=== PATIENT | female | born 1935 | race Caucasian/White ===

== ENCOUNTER 2017-06-28 12:46 | Inpatient (IN) ==
[2017-06-28] MEDS ORDERED: 0.9 % Sodium Chloride 1,000 ML IVC ONE (14:49)
[2017-06-28] MEDS ORDERED: Ondansetron 4 MG/2 ML VIAL IVP ONE (14:50)
--- NOTE | 2017-06-28 14:57 | Emergency Department Note ---
Disposition Clinical Impression: Pancolitis Abdominal pain Qualifiers: Abdominal location: unspecified location Qualified Code(s): R10.9 - Unspecified abdominal pain Disposition: Admitted As Inpatient Condition: Good Referrals: Ryan Vogel DO [Primary Care Provider] - Forms: ED Satisfaction Letter Time of Disposition: 16:32 Nausea/Vomiting/Diarrhea HPI - General Chief complaint: ED Nausea/Vomiting/Diarrhea Stated complaint: Diarrhea x 6 days Time Seen by Provider: 06/28/17 14:32 Source: patient Limitations: no limitations Nursing Notes Reviewed: Yes Vital Signs Reviewed: Yes - History of Present Illness HPI Narrative: 81-year-old female history of insulin-dependent diabetes mellitus presents an emergency department with abdominal pain and diarrhea. States the symptoms have been going on for the last 6 days. She reports roughly 6 bowel movements a day over the past 6 days. They are loose and appearance. It has not gotten better but it has not gotten worse. She associates with some sharp abdominal pain that becomes crampy after bowel movement mostly in the lower belly. She has not taken anything for the discomfort. She denies any blood in her stool. There is blood when she wipes. Denies any urinary symptoms. Denies any fevers. Reports some associated nausea denies any vomiting. Denies any chest pain or shortness of breath. Patient is a tobacco user. History of cholecystectomy, appendectomy and hysterectomy. Denies any recent travel or rashes. Denies any injury or trauma to the abdomen. She follows with Dr. Vogel her primary care physician who she is scheduled to have an appointment tomorrow morning. Denies any sick contacts. Denies history of prior antibiotic use. Pt Subjective Complaint: nausea, diarrhea, abdominal pain - Related Data Home Medications Medication Instructions Recorded Confirmed Atenolol [Tenormin] 25 mg PO DAILY 05/01/15 06/28/17 Gabapentin [Neurontin] 300 mg PO BID 05/01/15 06/28/17 Losartan Potassium [Cozaar] 100 mg PO DAILY 05/01/15 06/28/17 Simvastatin [Zocor] 10 mg PO QPM 05/01/15 06/28/17 amLODIPine [Norvasc] 10 mg PO DAILY 05/01/15 06/28/17 HYDROcodone/Acet 10/325 mg [[place] 1 tab PO Q6HR PRN 06/28/17 06/28/17 10-325 mg] Insulin Glargine,Hum.rec.anlog 30 unit SQ QPM PRN 06/28/17 06/28/17 [Basaglar Viriikpen U-100] Allergies Allergy/AdvReac Type Severity Reaction Status Date / Time metformin Allergy Vomiting Verified 06/28/17 13:08 Penicillins Allergy Unconscious Verified 06/28/17 13:08 All systems ED: reviewed and negative except as stated. Review of Systems: As Per HPI Constitutional: Denies: fever Cardiovascular: Denies: chest pain Respiratory: Denies: cough, dyspnea Gastrointestinal: Reports: abdominal pain, nausea, diarrhea, hematochezia. Denies: vomiting Genitourinary: Denies: urgency, dysuria Musculoskeletal: Denies: back pain Integumentary: Denies: rash, abrasion, lesions Past Medical History - Past Medical History Attestation: Yes The following information was validated with the patient. Source: patient Medical history: Reports: COPD, diabetes, hyperlipidemia, hypertension, other Surgical history: Reports: appendectomy, cholecystectomy, hysterectomy Psychiatric history: Reports: no psych history - Social History Smoking Status: Current every day smoker Smokeless Tobacco Status: No Alcohol use: Reports: none Drug use: Reports: none Physical Exam - General Limitations: no limitations General appearance: alert - Head Head exam: atraumatic, normocephalic, normal inspection - Eye Eye exam: Present: normal appearance, PERRL, EOMI. Absent: scleral icterus - ENT ENT exam: normal exam, normal oropharynx, mucous membranes moist - Neck Neck exam: Present: normal inspection, full ROM, trachea midline - Chest Chest inspection: Present: normal inspection, symmetric chest wall rise - Respiratory Respiratory exam: Present: normal lung sounds bilaterally. Absent: respiratory distress, wheezes - Cardiovascular Cardiovascular exam: Present: regular rate, normal rhythm, normal heart sounds - Abdominal Exam Abdominal exam: Present: soft, Non-Tender, normal bowel sounds. Absent: tenderness, distention, guarding, rebound, rigidity, Suárez's sign, tenderness at McBurney's Point, mass, hernia Abdominal tenderness: Present: LLQ, suprapubic, mild - Extremities Exam Extremities exam: Present: normal inspection, full ROM, normal capillary refill. Absent: tenderness, pedal edema - Back Exam Back exam: Present: normal inspection, full ROM. Absent: tenderness, CVA tenderness (R), CVA tenderness (L) - Neurological Exam Neurological exam: Present: alert, oriented X3 - Psychiatric Psychiatric exam: Present: normal affect, normal mood - Skin Skin exam: Present: warm, dry, intact, normal color. Absent: rash, cyanosis, diaphoresis Course Course Narrative: Patient presents with generalized abdominal pain and diarrhea over the past several days. Mildly tender in the lower quadrants. No peritonitis. CT of the abdomen and pelvis showed pancolitis. Concerning for possible C. diff given loose stools. Will treat for possible infectious colitis. She denies any recent hospitalizations. No prior antibiotic use. Review for lab shows a leukocytosis but her hemoglobin is also elevated which could demonstrate some hemoconcentration from dehydration. No acute kidney injury. Creatinine is normal. She reports some mild improvement with medications. At this time will treat empirically with Cipro and Flagyl for possible infectious colitis and send toxin for C. diff. Impression is abdominal pain and pancolitis. - Consultations Consultation #1: Spoke with on-call hospitalist alice Quintanilla to admit for abdominal pain, diarrhea, pancolitis with concern for C. diff. No further orders at this time. Ok with IV cipro and flagyl. Time: 17:30 Vital Signs Temperature 98.1 F 06/28/17 13:08 Pulse Rate 60 06/28/17 13:08 Respiratory Rate 20 06/28/17 13:08 Blood Pressure 177/67 06/28/17 13:08 O2 Sat by Pulse Oximetry 94 06/28/17 13:08 Temperature 98.1 F 06/28/17 13:08 Pulse Rate 60 06/28/17 13:08 Respiratory Rate 20 06/28/17 13:08 Blood Pressure 177/67 06/28/17 13:08 O2 Sat by Pulse Oximetry 94 06/28/17 13:08 Oxygen Delivery Oxygen Delivery Room Air Nausea/Vomiting/Diarrhea - MDM Narrative Medical decision making narrative: Patient was discussed with my attending physician who agrees with ED management and final disposition. They independently evaluated the patient. Please refer to their attestation to this encounter for additional information. This note was generated by [employer] voice recognition software and as a result grammatical or spelling errors may occur using this program. - Medical Records Medical records reviewed: Yes I reviewed the patient's medical records. - Lab Data Lab results reviewed: Yes I reviewed the patient's lab results. Result diagrams: 06/28/17 14:44 06/28/17 14:44 Lab Results 06/28/17 06/28/17 Range/Units 14:44 14:44 WBC 15.0 H (4.3-11.1) K/mcL RBC 5.32 H (3.82-4.97) M/mcL Hgb 16.3 H (11.5-15.4) g/dL Hct 46.7 H (35.3-44.9) % MCV 87.8 (83.0-100.0) fL MCH 30.6 (28.0-33.3) pg MCHC 34.9 (31.6-35.5) g/dL RDW 13.7 (11.5-14.5) % Plt Count 362 (140-400) K/mcL MPV 11.4 (9.4-12.4) fL Immature Gran % 0.7 (0-4) % Seg Neutrophils % 62.5 % Lymphocytes % 23.5 % Monocytes % 8.3 % Eosinophils % 4.2 % Basophils % 0.8 % Neutrophils # 9.4 H (1.6-8.9) K/mcL Lymphocytes # 3.5 (0.6-4.6) K/mcL Monocytes # 1.2 (0.0-1.3) K/mcL Eosinophils # 0.6 (0.0-0.6) K/mcL Basophils # 0.1 (0.0-0.2) K/mcL Sodium 139 (136-145) mEq/L Potassium 3.4 L (3.5-5.1) mEq/L Chloride 107 (98-107) mEq/L Carbon Dioxide 22 L (23-29) mEq/L BUN 12 (8-23) mg/dL Creatinine 0.92 (0.60-1.20) mg/dL Est GFR ( Amer) > 60 (> 60) Est GFR (Non-Af Amer) 59 L (> 60) BUN/Creatinine Ratio 13 (6-26) Glucose 80 (70-105) mg/dL Calculated Osmolality 287 (280-300) Calcium 9.2 (8.6-10.3) mg/dL Total Bilirubin 0.3 (0.3-1.0) mg/dL AST 58 H (13-39) Units/L ALT 41 (7-52) Units/L Alkaline Phosphatase 211 H (34-104) Units/L Serum Total Protein 6.5 (6.4-8.9) g/dL Albumin 3.1 L (3.5-5.7) g/dL Globulin 3.4 (2.4-3.5) g/dL Albumin/Globulin Ratio 0.9 L (1.1-2.2) - Radiology Data Radiology results reviewed: Yes I reviewed the patient's radiology results. Abdomen/Pelvis CT 06/28/17 14:49 IMPRESSION: 1. Findings consistent with acute pancolitis. The differential favors infectious and inflammatory etiologies, including Clostridium difficile. 2. Air within the bladder lumen, likely related to recent catheterization. 3. Mild intrahepatic and extrahepatic biliary dilation, which may be related to prior cholecystectomy. 4. Bilateral nonobstructive renal calculi measure up to 3 mm. D/ / 06/28/2017 15:43:36 Sudheer Walters MD / brandon Interpreting Provider: Sudheer Walters MD
[2017-06-28 15:13] LABS: Basophils # 0.1 K/mcL (0.0-0.2); Basophils % 0.8 %; Eosinophils # 0.6 K/mcL (0.0-0.6); Eosinophils % 4.2 %; Hematocrit 46.7 % (35.3-44.9); Hemoglobin 16.3 g/dL (11.5-15.4); Immature Granulocytes % 0.7 % (0-4); Lymphocytes # 3.5 K/mcL (0.6-4.6); Lymphocytes % 23.5 %; Mean Corpuscular HGB Conc 34.9 g/dL (31.6-35.5); Mean Corpuscular Hemoglobin 30.6 pg (28.0-33.3); Mean Corpuscular Volume 87.8 fL (83.0-100.0); Mean Platelet Volume 11.4 fL (9.4-12.4); Monocytes # 1.2 K/mcL (0.0-1.3); Monocytes % 8.3 %; Neutrophils # 9.4 K/mcL (1.6-8.9); Platelet Count 362 K/mcL (140-400); Red Blood Count 5.32 M/mcL (3.82-4.97); Red Cell Distribution Width 13.7 % (11.5-14.5); Segmented Neutrophils % 62.5 %
[2017-06-28 15:38] LABS: Alanine Aminotransferase 41 Units/L (7-52); Albumin 3.1 g/dL (3.5-5.7); Albumin/Globulin Ratio 0.9 (1.1-2.2); Alkaline Phosphatase 211 Units/L (34-104); Aspartate Amino Transferase 58 Units/L (13-39); BUN/Creatinine Ratio 13 (6-26); Bilirubin,Total 0.3 mg/dL (0.3-1.0); Blood Urea Nitrogen 12 mg/dL (8-23); Calcium 9.2 mg/dL (8.6-10.3); Carbon Dioxide 22 mEq/L (23-29); Chloride 107 mEq/L (98-107); Globulin 3.4 g/dL (2.4-3.5); Glucose 80 mg/dL (70-105); Osmolality,Calculated 287 (280-300); Potassium 3.4 mEq/L (3.5-5.1); Sodium 139 mEq/L (136-145); Total Protein 6.5 g/dL (6.4-8.9); eGFR For African Americans > 60 (> 60); eGFR For Non-African Americans 59 (> 60)
[2017-06-28] MEDS ORDERED: MetroNIDAZOLE 500 MG/100 ML 500 MG/100 ML BAG IVPB ONE (16:22)
[2017-06-28] MEDS ORDERED: *HR* FentaNYL (PF) 100 MCG/2 ML VIAL IVP ONE (16:33)
--- NOTE | 2017-06-28 16:36 | Emergency Department Note ---
Disposition Clinical Impression: Pancolitis Abdominal pain Qualifiers: Abdominal location: unspecified location Qualified Code(s): R10.9 - Unspecified abdominal pain Disposition: Admitted As Inpatient Condition: Good Referrals: Ryan Vogel DO [Primary Care Provider] - Forms: ED Satisfaction Letter Time of Disposition: 16:20 General Adult HPI - General Chief complaint: ED Nausea/Vomiting/Diarrhea Stated complaint: Diarrhea x 6 days Time Seen by Provider: 06/28/17 14:32 Source: patient Mode of arrival: ambulatory Limitations: no limitations Nursing Notes Reviewed: Yes Vital Signs Reviewed: Yes - History of Present Illness Pain Scale: 10 - Related Data Home Medications Medication Instructions Recorded Confirmed Atenolol [Tenormin] 25 mg PO DAILY 05/01/15 05/01/15 Gabapentin [Neurontin] 300 mg PO BID 05/01/15 05/01/15 Glimepiride [Amaryl] 4 mg PO BID 05/01/15 05/01/15 Ipratropium/Albuterol Neb [Duoneb] 1 inh IH QID 05/01/15 05/01/15 Losartan Potassium [Cozaar] 100 mg PO DAILY 05/01/15 05/01/15 Simvastatin [Zocor] 10 mg PO QPM 05/01/15 05/01/15 amLODIPine [Norvasc] 10 mg PO DAILY 05/01/15 05/01/15 Previous Rx's Medication Instructions Recorded Azithromycin [Zithromax] 250 mg PO DAILY #4 tablet 05/02/15 Insulin DETEMIR [Levemir] 50 unit SQ DAILY 30 Days 05/02/15 predniSONE [PredniSONE] 20 mg PO DAILY #7 tablet 05/02/15 Allergies Allergy/AdvReac Type Severity Reaction Status Date / Time metformin Allergy Vomiting Verified 06/28/17 13:08 Penicillins Allergy Unconscious Verified 06/28/17 13:08 Constitutional: Denies: fever Cardiovascular: Denies: chest pain Respiratory: Denies: cough, dyspnea Gastrointestinal: Reports: abdominal pain, nausea, diarrhea, hematochezia. Denies: vomiting Genitourinary: Denies: urgency, dysuria Musculoskeletal: Denies: back pain Integumentary: Denies: rash, abrasion, lesions Past Medical History - Past Medical History Medical history: Reports: COPD, diabetes, hyperlipidemia, hypertension, other Surgical history: Reports: appendectomy, cholecystectomy, hysterectomy Psychiatric history: Reports: no psych history - Social History Smoking Status: Current every day smoker Smokeless Tobacco Status: No Alcohol use: Reports: none Drug use: Reports: none Physical Exam - General Limitations: no limitations General appearance: alert Course Vital Signs Temperature 98.1 F 06/28/17 13:08 Pulse Rate 60 06/28/17 13:08 Respiratory Rate 20 06/28/17 13:08 Blood Pressure 177/67 06/28/17 13:08 O2 Sat by Pulse Oximetry 94 06/28/17 13:08 Temperature 98.1 F 06/28/17 13:08 Pulse Rate 60 06/28/17 13:08 Respiratory Rate 20 06/28/17 13:08 Blood Pressure 177/67 06/28/17 13:08 O2 Sat by Pulse Oximetry 94 06/28/17 13:08 Oxygen Delivery Oxygen Delivery Room Air Medical Decision Making - Lab Data Result diagrams: 06/28/17 14:44 06/28/17 14:44 Lab Results 06/28/17 06/28/17 Range/Units 14:44 14:44 WBC 15.0 H (4.3-11.1) K/mcL RBC 5.32 H (3.82-4.97) M/mcL Hgb 16.3 H (11.5-15.4) g/dL Hct 46.7 H (35.3-44.9) % MCV 87.8 (83.0-100.0) fL MCH 30.6 (28.0-33.3) pg MCHC 34.9 (31.6-35.5) g/dL RDW 13.7 (11.5-14.5) % Plt Count 362 (140-400) K/mcL MPV 11.4 (9.4-12.4) fL Immature Gran % 0.7 (0-4) % Seg Neutrophils % 62.5 % Lymphocytes % 23.5 % Monocytes % 8.3 % Eosinophils % 4.2 % Basophils % 0.8 % Neutrophils # 9.4 H (1.6-8.9) K/mcL Lymphocytes # 3.5 (0.6-4.6) K/mcL Monocytes # 1.2 (0.0-1.3) K/mcL Eosinophils # 0.6 (0.0-0.6) K/mcL Basophils # 0.1 (0.0-0.2) K/mcL Sodium 139 (136-145) mEq/L Potassium 3.4 L (3.5-5.1) mEq/L Chloride 107 (98-107) mEq/L Carbon Dioxide 22 L (23-29) mEq/L BUN 12 (8-23) mg/dL Creatinine 0.92 (0.60-1.20) mg/dL Est GFR ( Amer) > 60 (> 60) Est GFR (Non-Af Amer) 59 L (> 60) BUN/Creatinine Ratio 13 (6-26) Glucose 80 (70-105) mg/dL Calculated Osmolality 287 (280-300) Calcium 9.2 (8.6-10.3) mg/dL Total Bilirubin 0.3 (0.3-1.0) mg/dL AST 58 H (13-39) Units/L ALT 41 (7-52) Units/L Alkaline Phosphatase 211 H (34-104) Units/L Serum Total Protein 6.5 (6.4-8.9) g/dL Albumin 3.1 L (3.5-5.7) g/dL Globulin 3.4 (2.4-3.5) g/dL Albumin/Globulin Ratio 0.9 L (1.1-2.2) Attestation Statement - Attestation Attestation: I, Austin Eddy, examined this patient and my medical decision-making was reviewed with the THREAD DRESSER/PA/Advanced Practice Nurse/Resident Physician. I agree with the documented findings, disposition and treatment plan as described except to the extent set forth below. 81-year-old female presents emergency Department with concerns of persistent diarrhea. Patient states she has generalized abdominal pain, worse with eating and with movement. Patient states she has never had symptoms like this in the past. Patient states the diarrhea is yellowish in color, nonbloody and without melena however she does have a small amount of blood present on tissue paper when wiping. Patient denies vaginal bleeding or vaginal discharge, chest pain, shortness of breath, syncope. No recent changes in her medications. Patient denies antibiotic use within the past 6 months. Denies camping or drinking from stream or well water. Denies eating new or unusual foods. No history of C. difficile the past. No sick contacts. CT of the abdomen and pelvis was obtained which showed pancolitis with concerns for C. difficile. Patient does have an elevated leukocytosis. Patient will be started on antibiotics emergency department. We will obtain a stool sample to evaluate for C. difficile. Patient comfortable with the plan for admission to the hospital.
--- NOTE | 2017-06-28 18:29 | Internal Med History&Physical ---
Date of Encounter: 06/29/17 Time of Encounter: 05:00 Internal Medicine - H&P: HPI Chief complaint: Diarrhea History of present illness: 81-year-old female with PMH of HTN, DM, COPD and hyperlipidemis who presents emergency Department with with generalized abdominal pain associated with non- bloody diarrhea. CT of the abdomen and pelvis was obtained which showed pancolitis with concerns for C. difficile. The patient was admitted for further evaluation and management. Past Med Surg Social Fam HX - Past Medical History Medical history: COPD, diabetes, hyperlipidemia, hypertension, other Psychiatric history: no psych history - Past Surgical History Surgical History: appendectomy, cholecystectomy, hysterectomy - Social History Smoking Status: Current every day smoker Smokeless Tobacco Status: No Alcohol use: none Drug use: none - Family History Mother Living Status: Hx Family Cardiac Disorders: Yes Hx Family Endocrine Disorder: Yes (DM) Internal Medicine - H&P: Meds Atenolol [Tenormin] 25 mg PO DAILY 05/01/15 [History] Gabapentin [Neurontin] 300 mg PO BID 05/01/15 [History] Losartan Potassium [Cozaar] 100 mg PO DAILY 05/01/15 [History] Simvastatin [Zocor] 10 mg PO QPM 05/01/15 [History] amLODIPine [Norvasc] 10 mg PO DAILY 05/01/15 [History] HYDROcodone/Acet 10/325 mg [[place] 10-325 mg] 1 tab PO Q6HR PRN 06/28/17 [History ] Insulin Glargine,Hum.rec.anlog [Basaglar Kwikpen U-100] 30 unit SQ QPM PRN 06/28 [History] 3 Allergy/AdvReac Type Severity Reaction Status Date / Time metformin Allergy Vomiting Verified 06/28/17 13:08 Penicillins Allergy Unconscious Verified 06/28/17 13:08 All Systems PM: A 10-system review of systems was performed and is negative for pertinent findings except as documented above in the HPI. - Constitutional Constitutional: no chills, no fever(s), no night sweats - Cardiovascular Cardiovascular ROS IM: no chest pain, no diaphoresis, no dyspnea, no lightheadedness, no palpitations, no syncope - Respiratory Respiratory: no cough, no dyspnea, no wheezing, no excessive phlegm production - Gastrointestinal Gastrointestinal: abdominal pain, cramping, diarrhea, nausea, vomiting, no hematemesis, no hematochezia, no melena - Neurological Neurological ROS: no confusion, no convulsions, no focal weakness, no numbness, no tingling, no tremor(s) - Constitutional Vitals: Temp Pulse Resp BP Pulse Ox 98.1 F 53 18 146/51 92 06/28/17 13:08 06/28/17 18:19 06/28/17 18:19 06/28/17 18:19 06/28/17 18:19 Internal Med - H&P Results - Labs CBC & Chem 7: 06/29/17 01:55 06/29/17 01:55 - Assessment and plan (1) Pancolitis Current Visit: Yes Status: Acute Assessment and plan: ASSESSMENT: - Diarrhea DD *Gastroenteritis *Gastritis *PUD *Pancreatitis *Cholecystitis *Diverticulitis *UTI PLAN: - NPO apart from meds - IVF - Stool WBC, O/P, C/S, Stool C.diff - Urine C+S - CBCD, BMP in AM - Liver/gallbladder U/S - GI consult - Zofran (ondansetron) PRN - DVT prophylaxis (2) T2DM (type 2 diabetes mellitus) Current Visit: No Status: Chronic Assessment and plan: Home meds, Insulin sliding scale Qualifiers: Diabetes mellitus complication status: without complication (3) Tobacco abuse Current Visit: No Status: Acute (4) DVT prophylaxis Current Visit: No Status: Acute (5) Hypertension Current Visit: Yes Status: Acute (6) COPD (chronic obstructive pulmonary disease) Current Visit: Yes Status: Acute (7) Hypokalemia Current Visit: Yes Status: Acute (8) Transaminitis Current Visit: Yes Status: Acute (9) UTI (urinary tract infection) Current Visit: Yes Status: Acute Assessment and plan: UA is suggetive of UTI , she asymptomatic , we will repeat a clean catch UA - Time Spent With Patient Total time spent is greater than 50% in coordination of care (as documented) at patient's floor/unit and/or counseling patient:
[2017-06-28] MEDS ORDERED: D5% in Water 1,000 ML IVC PRN (18:39)
[2017-06-28] MEDS ORDERED: Dextrose Gel 15 GM/37.5 ML TUBE PO PRN ×2 (18:39)
[2017-06-28] MEDS ORDERED: Naloxone 0.4 MG/ML INJ IVP PRN (19:38)
[2017-06-28 19:49] LABS: Bilirubin,Urine Negative (Negative); Blood,Urine Trace (Negative); Clarity,Urine Turbid (Clear); Color,Urine Yellow (Yellow); Glucose,Urine (UA) Normal (Normal); Ketones,Urine Negative (Negative); Leukocyte Esterase,Urine Small (Negative); Nitrite,Urine Negative (Negative); Protein,Urine >=1000 mg/dL (Neg-Trace); Specific Gravity,Urine 1.023 (1.010-1.025); Urobilinogen,Urine Normal (Normal)
[2017-06-28 19:51] LABS: Bacteria,Urine Many per hpf (None-Few); Hyaline Casts,Urine None Seen per lpf (None-Few); Squamous Epithelial Cell,Urine Many per lpf (None-Few); WBC,Urine TNTC per hpf (0-3)
[2017-06-28] MEDS: Gabapentin 300 MG CAPSULE PO SCH (20:32)
[2017-06-28] MEDS: 0.9 % Sodium Chloride 1,000 ML IVC SCH (20:33)
[2017-06-28] MEDS: *HR* Dextrose 50 % in Water (Syg) 50 ML SYRINGE IVP PRN (22:13)
[2017-06-28] MEDS: Insulin DETEMIR 100 UNIT/ML X5UNITS SQ SCH (22:31)
--- NOTE | 2017-06-28 23:19 | Event Note ---
Date of Encounter: 06/28/17 Time of Encounter: 23:17 Was called about a positive C. Diff. Will start oral vancomycin per new IDSA guidelines for C. Diff treatment. It seems the patient has received IV flagyl and IV cipro in the ED earlier.
[2017-06-28] MEDS: Insulin LISPRO 300 UNITS/3 ML VIAL SQ SCH (23:33)
[2017-06-28] MEDS: Vancomycin Oral Soln 125 MG/2.5 ML UDC PO SCH (23:56)
[2017-06-29 02:13] LABS: Basophils # 0.1 K/mcL (0.0-0.2); Basophils % 0.5 %; Eosinophils # 0.3 K/mcL (0.0-0.6); Eosinophils % 3.4 %; Hematocrit 37.2 % (35.3-44.9); Immature Granulocytes % 0.6 % (0-4); Lymphocytes # 1.8 K/mcL (0.6-4.6); Lymphocytes % 19.4 %; Mean Corpuscular HGB Conc 34.1 g/dL (31.6-35.5); Mean Corpuscular Hemoglobin 30.1 pg (28.0-33.3); Mean Corpuscular Volume 88.2 fL (83.0-100.0); Mean Platelet Volume 10.5 fL (9.4-12.4); Monocytes # 0.7 K/mcL (0.0-1.3); Neutrophils # 6.5 K/mcL (1.6-8.9); Platelet Count 234 K/mcL (140-400); Red Blood Count 4.22 M/mcL (3.82-4.97); Red Cell Distribution Width 13.5 % (11.5-14.5); Segmented Neutrophils % 69.1 %
[2017-06-29 02:14] LABS: Hemoglobin 12.7 g/dL (11.5-15.4)
[2017-06-29 02:19] LABS: INR 1.1; Prothrombin Time 11.6 Seconds (9.4-12.1)
[2017-06-29 02:22] LABS: Activated Partial Thrombo Time 34.3 Seconds (26.0-36.0)
[2017-06-29 02:30] LABS: Alanine Aminotransferase 31 Units/L (7-52); Albumin 2.1 g/dL (3.5-5.7); Albumin/Globulin Ratio 0.9 (1.1-2.2); Alkaline Phosphatase 147 Units/L (34-104); Aspartate Amino Transferase 47 Units/L (13-39); BUN/Creatinine Ratio 14 (6-26); Bilirubin,Total 0.2 mg/dL (0.3-1.0); Blood Urea Nitrogen 12 mg/dL (8-23); Calcium 7.7 mg/dL (8.6-10.3); Carbon Dioxide 21 mEq/L (23-29); Chloride 114 mEq/L (98-107); Chol/HDL Ratio 1.8 (0-4.9); Cholesterol 101 mg/dL (< 200); Globulin 2.4 g/dL (2.4-3.5); Glucose 84 mg/dL (70-105); HDL Cholesterol 55 mg/dL (40-59); LDL Cholesterol,Calculated 28 mg/dL (0-99); Magnesium 1.5 mg/dL (1.6-2.6); Osmolality,Calculated 287 (280-300); Phosphorous 4.4 mg/dL (2.7-4.5); Potassium 3.1 mEq/L (3.5-5.1); Sodium 139 mEq/L (136-145); Total Protein 4.5 g/dL (6.4-8.9); Triglycerides 88 mg/dL (< 150); eGFR For African Americans > 60 (> 60); eGFR For Non-African Americans > 60 (> 60)
[2017-06-29] MEDS: *HR* HYDROcodone/Acet 10/325 mg TABLET PO PRN ×3 (03:35→23:00)
[2017-06-29] MEDS ORDERED: MetroNIDAZOLE 500 MG/100 ML 500 MG/100 ML BAG IVPB SCH (04:00)
[2017-06-29] MEDS: 0.9 % Sodium Chloride 1,000 ML IVC SCH (04:34)
[2017-06-29] MEDS: Pantoprazole 40 MG VIAL IVP SCH ×2 (05:46→16:41)
[2017-06-29] MEDS: *HR* Dextrose 50 % in Water (Syg) 50 ML SYRINGE IVP PRN (05:46)
[2017-06-29] MEDS: Insulin LISPRO 300 UNITS/3 ML VIAL SQ SCH ×3 (05:47→20:14)
[2017-06-29] MEDS: *HR* Heparin 5,000 UNIT/ML VIAL SQ SCH ×2 (05:47→16:42)
[2017-06-29 08:25] LABS: Estimated Average Glucose 266 mg/dl; Hemoglobin A1C 10.9 %
[2017-06-29] MEDS: Gabapentin 300 MG CAPSULE PO SCH ×2 (11:51→21:07)
[2017-06-29] MEDS: amLODIPine 5 MG TABLET PO SCH (11:52)
[2017-06-29] MEDS: Vancomycin Oral Soln 125 MG/2.5 ML UDC PO SCH ×4 (12:58→23:01)
--- NOTE | 2017-06-29 14:23 | Internal Med Progress Note ---
Date of Encounter: 06/29/17 Time of Encounter: 14:20 - Assessment and plan (1) COPD with acute exacerbation Current Visit: No Status: Chronic Assessment and plan: Chronic no active wheezing at present (2) T2DM (type 2 diabetes mellitus) Current Visit: No Status: Chronic Assessment and plan: Chronic we will continue sliding scale Qualifiers: Diabetes mellitus terminal make up operator insulin use: unspecified terminal make up operator insulin use status Diabetes mellitus complication status: with unspecified complications Qualified Code(s): E11.8 - Type 2 diabetes mellitus with unspecified complications (3) Abdominal pain Current Visit: Yes Status: Acute Assessment and plan: CT of the abdomen shows pancolitis patient started on Cipro and Flagyl Qualifiers: Abdominal location: unspecified location Qualified Code(s): R10.9 - Unspecified abdominal pain (4) Pancolitis Current Visit: Yes Status: Acute (5) Hypertension Current Visit: Yes Status: Chronic Assessment and plan: Chronic and appears uncontrolled i patient says her blood pressure normally controlled at home medication has prn hydralazine Qualifiers: Hypertension type: essential hypertension Qualified Code(s): I10 - Essential (primary) hypertension (6) Transaminitis Current Visit: Yes Status: Acute Assessment and plan: Ultrasound of the gallbladder unremarkable (7) UTI (urinary tract infection) Current Visit: Yes Status: Acute Assessment and plan: Patient on antiplatelet antibiotic that will cover UTI Qualifiers: Urinary tract infection type: acute cystitis Hematuria presence: without hematuria Qualified Code(s): N30.00 - Acute cystitis without hematuria - Time Spent With Patient Total time spent is greater than 50% in coordination of care (as documented) at patient's floor/unit and/or counseling patient: - Subjective Interval history: Patient with history of hypertension, diabetes, COPD, patient was admitted with generalized abdominal pain and diarrhea CT of the abdomen shows pancolitis right upper quadrant ultrasound was unremarkable C. difficile was also positive . started on Cipro Flagyl and by mouth vancomycin today patient says she feels much better less diarrhea overall she feels better - Constitutional Vitals: Temp Pulse Resp BP Pulse Ox 98.1 F 59 14 185/61 93 06/29/17 10:33 06/29/17 10:33 06/29/17 10:33 06/29/17 10:33 06/29/17 10:33 - Head Head exam: Present: atraumatic, normocephalic - Eye Eye exam: Present: PERRL, conjuntiva pink, sclera anicteric Pupils: Present: PERRL - Respiratory Respiratory exam: Present: CTAB. Absent: accessory muscle use, rales, rhonchi, wheezes - Cardiovascular Cardiovascular exam: Present: RRR, +S1, +S2. Absent: diastolic murmur, gallop, rubs, systolic murmur - GI/Abdominal GI/Abdominal exam: Present: soft - Extremities Exam Extremities exam: Present: warm, radial pulses palpable and symmetrical. Absent : calf tenderness, cyanotic, pedal edema Internal Medicine: Result - Labs CBC & Chem 7: 06/29/17 01:55 06/29/17 01:55 Labs: Short CBC 06/29/17 Range/Units 01:55 WBC 9.4 (4.3-11.1) K/mcL Hgb 12.7 D (11.5-15.4) g/dL Hct 37.2 (35.3-44.9) % Plt Count 234 (140-400) K/mcL Neutrophils # 6.5 (1.6-8.9) K/mcL BMP 06/29/17 01:55 Sodium 139 Potassium 3.1 L Chloride 114 H Carbon Dioxide 21 L BUN 12 Creatinine 0.83 Glucose 84 Calcium 7.7 L Cardiac Enzymes 06/28/17 06/29/17 06/29/17 Range/Units 21:05 01:55 08:18 Troponin I < 0.03 < 0.03 < 0.03 (< 0.04) ng/mL Liver Function 06/29/17 Range/Units 01:55 Total Bilirubin 0.2 L (0.3-1.0) mg/dL AST 47 H (13-39) Units/L ALT 31 (7-52) Units/L Alkaline Phosphatase 147 H (34-104) Units/L Albumin 2.1 L (3.5-5.7) g/dL - ABG Interpretation ABG results: PT/INR, D-dimer PT 11.6 Seconds (9.4-12.1) 06/29/17 01:55 - Impressions Impressions Abdomen Ultrasound 06/29/17 09:00 IMPRESSION: Cholecystectomy. Exam is otherwise unremarkable. D/ / 06/29/2017 10:31:54 Raffaele Damico MD / raisa Interpreting Provider: Raffaele Damico MD Consult Discharge Plan - Plan Referrals: Ryan Vogel DO [Primary Care Provider] -
[2017-06-29] MEDS: Insulin DETEMIR 100 UNIT/ML X5UNITS SQ SCH (21:18)
[2017-06-30] MEDS ORDERED: Dextrose Gel 15 GM/37.5 ML TUBE PO PRN ×4 (01:22→01:31)
[2017-06-30] MEDS ORDERED: *HR* Dextrose 50 % in Water (Syg) 50 ML SYRINGE IVP PRN ×2 (01:22→01:31)
[2017-06-30] MEDS ORDERED: D5% in Water 1,000 ML IVC PRN ×2 (01:22→01:31)
[2017-06-30 05:24] LABS: BUN/Creatinine Ratio 13 (6-26); Blood Urea Nitrogen 14 mg/dL (8-23); Calcium 7.7 mg/dL (8.6-10.3); Carbon Dioxide 17 mEq/L (23-29); Chloride 115 mEq/L (98-107); Glucose 201 mg/dL (70-105); Osmolality,Calculated 292 (280-300); Potassium 3.8 mEq/L (3.5-5.1); Sodium 138 mEq/L (136-145); eGFR For African Americans > 60 (> 60); eGFR For Non-African Americans 51 (> 60)
[2017-06-30] MEDS: *HR* Heparin 5,000 UNIT/ML VIAL SQ SCH ×2 (05:53→17:09)
[2017-06-30] MEDS: Pantoprazole 40 MG VIAL IVP SCH ×2 (05:53→17:09)
[2017-06-30] MEDS: *HR* HYDROcodone/Acet 10/325 mg TABLET PO PRN ×3 (05:54→20:16)
[2017-06-30] MEDS: Insulin LISPRO 300 UNITS/3 ML VIAL SQ SCH ×3 (08:43→17:09)
[2017-06-30] MEDS: amLODIPine 5 MG TABLET PO SCH (08:43)
[2017-06-30] MEDS: Gabapentin 300 MG CAPSULE PO SCH ×2 (08:43→20:16)
[2017-06-30] MEDS: Vancomycin Oral Soln 125 MG/2.5 ML UDC PO SCH ×4 (10:14→20:18)
--- NOTE | 2017-06-30 16:12 | Internal Med Progress Note ---
Date of Encounter: 06/30/17 Time of Encounter: 16:10 - Assessment and plan (1) C. difficile colitis Current Visit: Yes Status: Acute Assessment and plan: Presented with complaints of severe diarrhea. CT abdomen/pelvis showed pancolitis and patient tested positive for C difficile. Continue oral vancomycin Appetite is poor and patient currently feeling ill Encouraging PO intake. Continue to monitor. (2) T2DM (type 2 diabetes mellitus) Current Visit: No Status: Chronic Assessment and plan: Home meds, Insulin sliding scale Qualifiers: Diabetes mellitus vermin exterminator insulin use: unspecified vermin exterminator insulin use status Diabetes mellitus complication status: with unspecified complications Qualified Code(s): E11.8 - Type 2 diabetes mellitus with unspecified complications (3) Tobacco abuse Current Visit: No Status: Acute (4) Hypertension Current Visit: Yes Status: Chronic Assessment and plan: Continue Norvasc, atenolol, Zozaar IV hydralazine prn. Qualifiers: Hypertension type: essential hypertension Qualified Code(s): I10 - Essential (primary) hypertension (5) COPD (chronic obstructive pulmonary disease) Current Visit: Yes Status: Acute Qualifiers: COPD type: unspecified COPD Qualified Code(s): J44.9 - Chronic obstructive pulmonary disease, unspecified (6) Hypokalemia Current Visit: Yes Status: Acute Assessment and plan: Replace as needed (7) Transaminitis Current Visit: Yes Status: Acute (8) DVT prophylaxis Current Visit: No Status: Acute - Time Spent With Patient Total time spent is greater than 50% in coordination of care (as documented) at patient's floor/unit and/or counseling patient: - Subjective Interval history: States diarrhea is much better, however, she is complaining of severe discomfort. Also having poor appetite, she had an egg in the morning and was not able to eat any lunch. Denies fevers/chills, n/v. - Constitutional Vitals: Temp Pulse Resp BP Pulse Ox 98.3 F 64 14 147/55 93 06/30/17 14:47 06/30/17 14:47 06/30/17 14:47 06/30/17 14:47 06/30/17 14:47 Exam: Gen: AAOx3, NAD CVS: RRR lungs: CTAB Abd: soft, +TTP epigastric, non-distended. Ext: no edema Internal Medicine: Result - Labs CBC & Chem 7: 06/29/17 01:55 06/30/17 04:46 Labs: BMP 06/30/17 04:46 Sodium 138 Potassium 3.8 Chloride 115 H Carbon Dioxide 17 L BUN 14 Creatinine 1.05 Glucose 201 H Calcium 7.7 L - ABG Interpretation ABG results: PT/INR, D-dimer PT 11.6 Seconds (9.4-12.1) 06/29/17 01:55 Consult Discharge Plan - Plan Referrals: Ryan Vogel DO [Primary Care Provider] - 07/09/17 12:00 pm
[2017-06-30] MEDS ORDERED: Insulin LISPRO 300 UNITS/3 ML VIAL SQ SCH (21:00)
[2017-06-30] MEDS: Insulin DETEMIR 100 UNIT/ML X5UNITS SQ SCH (22:09)
[2017-07-01] MEDS: *HR* HYDROcodone/Acet 10/325 mg TABLET PO PRN ×3 (04:53→21:10)
[2017-07-01] MEDS: Pantoprazole 40 MG VIAL IVP SCH (04:54)
[2017-07-01] MEDS: *HR* Heparin 5,000 UNIT/ML VIAL SQ SCH ×2 (04:54→17:23)
[2017-07-01 06:40] LABS: Basophils # 0.1 K/mcL (0.0-0.2); Basophils % 0.9 %; Eosinophils # 0.4 K/mcL (0.0-0.6); Eosinophils % 4.7 %; Hematocrit 37.9 % (35.3-44.9); Hemoglobin 13.1 g/dL (11.5-15.4); Immature Granulocytes % 1.4 % (0-4); Lymphocytes # 1.1 K/mcL (0.6-4.6); Lymphocytes % 11.8 %; Mean Corpuscular HGB Conc 34.6 g/dL (31.6-35.5); Mean Corpuscular Hemoglobin 30.7 pg (28.0-33.3); Mean Corpuscular Volume 88.8 fL (83.0-100.0); Mean Platelet Volume 11.1 fL (9.4-12.4); Monocytes # 0.9 K/mcL (0.0-1.3); Monocytes % 10.3 %; Neutrophils # 6.4 K/mcL (1.6-8.9); Platelet Count 242 K/mcL (140-400); Red Blood Count 4.27 M/mcL (3.82-4.97); Red Cell Distribution Width 14.2 % (11.5-14.5); Segmented Neutrophils % 70.9 %
[2017-07-01 07:04] LABS: BUN/Creatinine Ratio 14 (6-26); Blood Urea Nitrogen 11 mg/dL (8-23); Calcium 7.8 mg/dL (8.6-10.3); Carbon Dioxide 19 mEq/L (23-29); Chloride 112 mEq/L (98-107); Glucose 190 mg/dL (70-105); Osmolality,Calculated 288 (280-300); Potassium 3.3 mEq/L (3.5-5.1); Sodium 137 mEq/L (136-145); eGFR For African Americans > 60 (> 60); eGFR For Non-African Americans > 60 (> 60)
[2017-07-01] MEDS: Insulin LISPRO 300 UNITS/3 ML VIAL SQ SCH ×3 (07:55→17:23)
[2017-07-01] MEDS: Gabapentin 300 MG CAPSULE PO SCH ×2 (07:57→21:10)
[2017-07-01] MEDS: amLODIPine 5 MG TABLET PO SCH (07:57)
[2017-07-01] MEDS: Vancomycin Oral Soln 125 MG/2.5 ML UDC PO SCH ×4 (07:57→21:11)
--- NOTE | 2017-07-01 09:48 | Internal Med Progress Note ---
Date of Encounter: 07/01/17 Time of Encounter: 09:45 - Assessment and plan (1) C. difficile colitis Current Visit: Yes Status: Acute Assessment and plan: Presented with complaints of severe diarrhea. CT abdomen/pelvis showed pancolitis and patient tested positive for C difficile. Continue oral vancomycin Continue to monitor. Appetite still poor. Will continue to encourage PO She is slow to improve from what she is telling me, I will get a repeat CT today. (2) T2DM (type 2 diabetes mellitus) Current Visit: No Status: Chronic Assessment and plan: Home meds, Insulin sliding scale Qualifiers: Diabetes mellitus medical terminologist insulin use: unspecified shelter insulin use status Diabetes mellitus complication status: with unspecified complications Qualified Code(s): E11.8 - Type 2 diabetes mellitus with unspecified complications (3) Tobacco abuse Current Visit: No Status: Acute (4) Hypertension Current Visit: Yes Status: Chronic Assessment and plan: On Norvasc, atenolol, Zozaar. Give IV hydralazine prn. Qualifiers: Hypertension type: essential hypertension Qualified Code(s): I10 - Essential (primary) hypertension (5) COPD (chronic obstructive pulmonary disease) Current Visit: Yes Status: Acute Qualifiers: COPD type: unspecified COPD Qualified Code(s): J44.9 - Chronic obstructive pulmonary disease, unspecified (6) Hypokalemia Current Visit: Yes Status: Acute Assessment and plan: Replace as needed will give additional today (7) Transaminitis Current Visit: Yes Status: Acute (8) DVT prophylaxis Current Visit: No Status: Acute Assessment and plan: Heparin 5,000 units SQ - Time Spent With Patient Total time spent is greater than 50% in coordination of care (as documented) at patient's floor/unit and/or counseling patient: - Subjective Interval history: States no diarrhea Denies fevers/chills Computer lists dinner 100% but patient telling me she did not eat much of dinner couldn't handle it. - Constitutional Vitals: Temp Pulse Resp BP Pulse Ox 99.1 F 70 16 182/75 93 07/01/17 06:52 07/01/17 06:52 07/01/17 06:52 07/01/17 06:52 07/01/17 06:52 - Head Head exam: Present: atraumatic, normocephalic - Eye Eye exam: Present: PERRL, conjuntiva pink, sclera anicteric Pupils: Present: PERRL - Neck Neck exam general surgery: Present: supple, trachea midline. Absent: lymphadenopathy - Respiratory Respiratory exam: Present: CTAB. Absent: accessory muscle use, rales, rhonchi, wheezes - Cardiovascular Cardiovascular exam: Present: RRR, +S1, +S2. Absent: diastolic murmur, gallop, rubs, systolic murmur - GI/Abdominal GI/Abdominal exam: Present: normal bowel sounds, soft, tenderness, no peritoneal signs. Absent: distended - Extremities Exam Extremities exam: Present: warm, radial pulses palpable and symmetrical. Absent : calf tenderness, cyanotic, pedal edema - Neurological Exam Neurological exam: Present: CN II-XII intact, oriented X3, no focal deficits. Absent: pronater drift, facial droop, speech deficit - Skin Skin exam: Present: dry, intact Internal Medicine: Result - Labs CBC & Chem 7: 07/01/17 05:49 07/01/17 05:49 Labs: Short CBC 07/01/17 Range/Units 05:49 WBC 9.0 (4.3-11.1) K/mcL Hgb 13.1 (11.5-15.4) g/dL Hct 37.9 (35.3-44.9) % Plt Count 242 (140-400) K/mcL Neutrophils # 6.4 (1.6-8.9) K/mcL BMP 07/01/17 05:49 Sodium 137 Potassium 3.3 L Chloride 112 H Carbon Dioxide 19 L BUN 11 Creatinine 0.77 Glucose 190 H Calcium 7.8 L - ABG Interpretation ABG results: PT/INR, D-dimer PT 11.6 Seconds (9.4-12.1) 06/29/17 01:55 Consult Discharge Plan - Plan Referrals: Ryan Vogel DO [Primary Care Provider] - 07/09/17 12:00 pm
[2017-07-01] MEDS ORDERED: Calcium Gluconate 2,000 MG in D5% in Water 100 ML IVPB ONE (09:51)
[2017-07-01] MEDS: Insulin DETEMIR 100 UNIT/ML X5UNITS SQ SCH (21:11)
[2017-07-02] MEDS: *HR* HYDROcodone/Acet 10/325 mg TABLET PO PRN ×2 (04:35→11:06)
[2017-07-02] MEDS: *HR* Heparin 5,000 UNIT/ML VIAL SQ SCH (06:16)
[2017-07-02 08:16] LABS: Basophils # 0.1 K/mcL (0.0-0.2); Basophils % 0.5 %; Eosinophils # 0.7 K/mcL (0.0-0.6); Eosinophils % 6.5 %; Hemoglobin 14.1 g/dL (11.5-15.4); Immature Granulocytes % 1.1 % (0-4); Lymphocytes # 1.7 K/mcL (0.6-4.6); Lymphocytes % 14.6 %; Mean Corpuscular HGB Conc 34.4 g/dL (31.6-35.5); Mean Corpuscular Hemoglobin 30.3 pg (28.0-33.3); Mean Corpuscular Volume 88.2 fL (83.0-100.0); Neutrophils # 7.7 K/mcL (1.6-8.9); Platelet Count 253 K/mcL (140-400); Red Blood Count 4.65 M/mcL (3.82-4.97); Red Cell Distribution Width 14.2 % (11.5-14.5); Segmented Neutrophils % 68.3 %
[2017-07-02] MEDS: Insulin LISPRO 300 UNITS/3 ML VIAL SQ SCH ×2 (09:17→12:52)
[2017-07-02] MEDS: amLODIPine 5 MG TABLET PO SCH (09:22)
[2017-07-02] MEDS: Gabapentin 300 MG CAPSULE PO SCH (09:22)
[2017-07-02] MEDS: Vancomycin Oral Soln 125 MG/2.5 ML UDC PO SCH (09:23)
[2017-07-02 09:57] LABS: BUN/Creatinine Ratio 15 (6-26); Blood Urea Nitrogen 12 mg/dL (8-23); Calcium 8.2 mg/dL (8.6-10.3); Carbon Dioxide 20 mEq/L (23-29); Chloride 111 mEq/L (98-107); Glucose 81 mg/dL (70-105); Osmolality,Calculated 283 (280-300); Potassium 3.8 mEq/L (3.5-5.1); Sodium 137 mEq/L (136-145); eGFR For African Americans > 60 (> 60); eGFR For Non-African Americans > 60 (> 60)
--- NOTE | 2017-07-02 11:00 | Internal Med Progress Note ---
Date of Encounter: 07/02/17 Time of Encounter: 10:54 - Assessment and plan (1) C. difficile colitis Current Visit: Yes Status: Acute (2) T2DM (type 2 diabetes mellitus) Current Visit: No Status: Chronic Qualifiers: Diabetes mellitus buttermaker continuous churn insulin use: unspecified buttermaker continuous churn insulin use status Diabetes mellitus complication status: with unspecified complications Qualified Code(s): E11.8 - Type 2 diabetes mellitus with unspecified complications (3) Tobacco abuse Current Visit: No Status: Acute (4) Hypertension Current Visit: Yes Status: Chronic Qualifiers: Hypertension type: essential hypertension Qualified Code(s): I10 - Essential (primary) hypertension (5) COPD (chronic obstructive pulmonary disease) Current Visit: Yes Status: Acute Qualifiers: COPD type: unspecified COPD Qualified Code(s): J44.9 - Chronic obstructive pulmonary disease, unspecified (6) Hypokalemia Current Visit: Yes Status: Acute (7) Transaminitis Current Visit: Yes Status: Acute (8) DVT prophylaxis Current Visit: No Status: Acute - Time Spent With Patient Total time spent is greater than 50% in coordination of care (as documented) at patient's floor/unit and/or counseling patient: - Subjective Interval history: States no diarrhea Denies fevers/chills Computer lists dinner 100% but patient telling me she did not eat much of dinner couldn't handle it. - Constitutional Vitals: Temp Pulse Resp BP Pulse Ox 98.7 F 69 14 163/70 94 07/02/17 07:44 07/02/17 07:44 07/02/17 07:44 07/02/17 07:44 07/02/17 07:44 Internal Medicine: Result - Labs CBC & Chem 7: 07/02/17 07:49 07/02/17 07:49 Labs: Short CBC 07/02/17 Range/Units 07:49 WBC 11.3 H (4.3-11.1) K/mcL Hgb 14.1 (11.5-15.4) g/dL Hct 41.0 (35.3-44.9) % Plt Count 253 (140-400) K/mcL Neutrophils # 7.7 (1.6-8.9) K/mcL BMP 07/02/17 07:49 Sodium 137 Potassium 3.8 Chloride 111 H Carbon Dioxide 20 L BUN 12 Creatinine 0.80 Glucose 81 Calcium 8.2 L - ABG Interpretation ABG results: PT/INR, D-dimer PT 11.6 Seconds (9.4-12.1) 06/29/17 01:55 - Impressions Impressions Abdomen/Pelvis CT 07/01/17 09:52 IMPRESSION: 1. Interval resolution of previously demonstrated pancolonic wall thickening consistent with resolved infectious or inflammatory pancolitis. 2. Bilateral nonobstructive renal calculi. 3. Small bilateral pleural effusions and bibasilar atelectasis. 4. Prior cholecystectomy and hysterectomy. D/ / 07/01/2017 13:34:53 Michelle Jennings [email or web address] Inter[facility] Provider: Michelle Jennings MD Consult Discharge Plan - Plan Referrals: Ryan Vogel DO [Primary Care Provider] - 07/09/17 12:00 pm
--- NOTE | 2017-07-02 11:04 | Discharge Summary ---
- NOTES TO OUTPATIENT PROVIDER Notes to Outpatient Provider: Follow-up with primary care physician in 2-3 days. Orders not resulted at time of discharge: Pending orders 07/03/17 04:00 BMP [Basic Metabolic Panel] AM 0400 Complete Blood Count [HEME] AM 0400 Date of Encounter: 07/02/17 Time of Encounter: 11:00 - Discharge Diagnosis (1) C. difficile colitis Priority: Primary Status: Acute (2) T2DM (type 2 diabetes mellitus) Priority: Secondary Status: Chronic Qualifiers: Diabetes mellitus custodial insulin use: unspecified custodial insulin use status Diabetes mellitus complication status: with unspecified complications Qualified Code(s): E11.8 - Type 2 diabetes mellitus with unspecified complications (3) Tobacco abuse Priority: Secondary Status: Acute (4) Hypertension Priority: Secondary Status: Chronic Qualifiers: Hypertension type: essential hypertension Qualified Code(s): I10 - Essential (primary) hypertension (5) COPD (chronic obstructive pulmonary disease) Priority: Secondary Status: Acute Qualifiers: COPD type: unspecified COPD Qualified Code(s): J44.9 - Chronic obstructive pulmonary disease, unspecified (6) Hypokalemia Priority: Secondary Status: Acute (7) Transaminitis Priority: Secondary Status: Acute (8) DVT prophylaxis Priority: Secondary Status: Acute Hospital course: Ms. Garcia is a 81 year old female with PMH of HTN, DM, COPD and hyperlipidemis who presents emergency Department with with generalized abdominal pain associated with non-bloody diarrhea. CT of the abdomen and pelvis was obtained which showed pancolitis with concerns for C. difficile. The patient was admitted for further evaluation and management. She was started NPO with IV fluid for supportive care. Stool panel was done that showed her positive for C difficile. She was started on oral vancomycin QID. Patient was slow to improve and a repeat CT abdomen/pelvis done showed interval improvement of pancolitis. She was eventually able to advance her diet and support her nutrition on her own. Diarrhea resolved. Patient clinically improved and remained hemodynamically stable. She was discharged in stable condition to finish 11 additional days of oral vancomycin. - Time Spent with Patient Total time spent providing and/or coordinating discharge services: - Discharge Medications Prescriptions: Vancomycin Oral Soln [Firvanq] 125 mg PO QID 11 Days #110 c Home Medications: Atenolol [Tenormin] 25 mg PO DAILY 05/01/15 [History] Gabapentin [Neurontin] 300 mg PO BID 05/01/15 [History] Losartan Potassium [Cozaar] 100 mg PO DAILY 05/01/15 [History] Simvastatin [Zocor] 10 mg PO QPM 05/01/15 [History] amLODIPine [Norvasc] 10 mg PO DAILY 05/01/15 [History] HYDROcodone/Acet 10/325 mg [[place] 10-325 mg] 1 tab PO Q6HR PRN 06/28/17 [History ] Insulin Glargine,Hum.rec.anlog [Basaglar Kwikpen U-100] 30 unit SQ QPM PRN 06/28 [History] Vancomycin Oral Soln [Firvanq] 125 mg PO QID 11 Days #110 udc 07/02/17 [Rx] Allergies/Adverse Reactions: 3 Allergy/AdvReac Type Severity Reaction Status Date / Time metformin Allergy Vomiting Verified 06/28/17 13:08 Penicillins Allergy Unconscious Verified 06/28/17 13:08 Date of admission: 06/28/17 20:42 Primary care physician: Juhi Smith Discharging clinician: Julissa Hsieh - Constitutional Vitals: Temp Pulse Resp BP Pulse Ox 98.7 F 69 14 163/70 94 07/02/17 07:44 07/02/17 07:44 07/02/17 07:44 07/02/17 07:44 07/02/17 07:44 - Head Head exam: Present: atraumatic, normocephalic - Eye Eye exam: Present: PERRL, conjuntiva pink, sclera anicteric Pupils: Present: PERRL - Neck Neck exam general surgery: Present: supple, trachea midline. Absent: lymphadenopathy - Respiratory Respiratory exam: Present: CTAB. Absent: accessory muscle use, rales, rhonchi, wheezes - Cardiovascular Cardiovascular exam: Present: RRR, +S1, +S2. Absent: diastolic murmur, gallop, rubs, systolic murmur - GI/Abdominal GI/Abdominal exam: Present: normal bowel sounds, soft, no peritoneal signs. Absent: distended, tenderness - Extremities Exam Extremities exam: Present: warm, radial pulses palpable and symmetrical. Absent : calf tenderness, cyanotic, pedal edema - Neurological Exam Neurological exam: Present: CN II-XII intact, oriented X3, no focal deficits. Absent: pronater drift, facial droop, speech deficit - Skin Skin exam: Present: dry, intact - Patient Status Disposition: Home, Self-Care Condition: Good Functional capacity at discharge: independent ambulation Overall status at discharge: patient is progressing back to baseline - Discharge Instructions Follow Up With: Ryan Vogel DO [Primary Care Provider] - 07/09/17 12:00 pm - Diet and Activity Activity: increase activity as tolerated Diet: advance to your usual diet
[2017-07-02 12:10] VITALS: BP 203/68
== END 2017-07-02 13:12 | disposition home or self-care (01) | DRG 372 ==
LOC: 3ANU 12:46 → EMEROO 12:46 → 3ANU 18:45 → SUATTDRO 20:42
PROVIDERS: ADMIT Internal Medicine Nephrology; ATTEND Student in an Organized Health Care Education/Training Program